=== PATIENT | male | born 1945 | race Caucasian/White ===

== ENCOUNTER 2017-01-20 17:20 | Outpatient (CLI) | payer MEDICARE | END 2017-01-20 17:21 | disposition home or self-care (01) | LOC: BICRAD 17:20 | PROVIDERS: ATTEND Family Medicine | DX: M70.62 Trochanteric bursitis, left hip (principal); M16.12 Unilateral primary osteoarthritis, left hip ==

== ENCOUNTER 2017-01-24 08:36 | Outpatient (CLI) | payer MEDICARE | END 2017-01-24 08:37 | disposition home or self-care (01) | LOC: BICMRI 08:36 | PROVIDERS: ATTEND Specialist | DX: M54.16 Radiculopathy, lumbar region (principal); N28.1 Cyst of kidney, acquired | CPT/HCPCS: 72148 ==

== ENCOUNTER 2018-09-22 06:39 | Outpatient (CLI) | payer MEDICARE ==
--- NOTE | 2018-09-22 07:47 | ULT ---
ULTRASOUND ABDOMEN: HISTORY: Abdominal pain FINDINGS: The liver, gallbladder, pancreas, left kidney and visualized portions of the spleen, aorta and IVC ap pear normal. The common duct measures 3 mm in diameter. No free fluid is seen. There is a 3.5 cm cyst arising from the superior pole of the right kidney. IMPRESSION: Right renal cyst.
== END 2018-09-22 06:40 | disposition home or self-care (01) ==
LOC: BICULT 06:39
PROVIDERS: ATTEND Internal Medicine Gastroenterology
DX: Z12.11 Encounter for screening for malignant neoplasm of colon (principal); R10.9 Unspecified abdominal pain; R63.4 Abnormal weight loss; N28.1 Cyst of kidney, acquired
CPT/HCPCS: 76700

== ENCOUNTER 2019-06-28 06:17 | Outpatient (CLI) | payer MEDICARE, OTHER ==
[2019-06-28 13:10] LABS: #Eosinphils 0.1 thou/uL (0.0-0.7); #Lymphocytes 2.1 thou/uL (1.20-3.40); #Monocytes 0.5 thou/uL (0.11-0.59); #Neutrophils 2.7 thou/uL (1.40-6.50); %Basophils 0.2 % (0.0-1.0); %Eosinophils 2.3 % (0.0-10.0); %Lymphocytes 38.6 % (21.0-51.0); Hemoglobin 14.3 g/dL (14.0-18.0); Mean Corpuscular HGB CONC 31.7 g/dL (32.0-36.0); Mean Corpuscular Hemoglobin 29.3 pg (27.0-31.0); Mean Corpuscular Volume 92.6 fL (78.0-98.0); Mean Platelet Volume 8.1 fL (7.4-10.4); Platelet Count 227 thou/uL (130-400); RBC Distribution Width 14.2 % (11.5-14.5); Red Blood Cell (RBC) Count 4.86 mill/uL (4.70-6.10); White Blood Cell (WBC) Count 5.4 thou/uL (4.8-10.8)
[2019-06-28 13:33] LABS: Anion Gap 12 mmol/L (10-20); BUN (Urea Nitrogen) 19 mg/dL (8.4-25.7); Calc. Creatinine Clearance 0 mL/min (70-130); Carbon Dioxide 22 mmol/L (23-31); Chloride 106 mmol/L (98-107); Estimated GFR-MDRD Greater than 90; Glucose 80 mg/dL (83-110); Potassium 4.1 mmol/L (3.5-5.1); Sodium 136 mmol/L (136-145)
--- NOTE | 2019-06-28 16:13 | EKG ---
Test Reason : Blood Pressure : / mmHG Vent. Rate : 075 BPM Atrial Rate : 075 BPM P-R Int : 186 ms QRS Dur : 122 ms QT Int : 410 ms P-R-T Axes : 063 020 073 degrees QTc Int : 457 ms Normal sinus rhythm Left bundle branch block Abnormal ECG When compared with ECG of 22-NOV-2013 16:40, Left bundle branch block is now Present Borderline criteria for Anterior infarct are no longer Present Confirmed by TAHIRA ORTIZ, DR. Womack ([id number]) on 06/28/2019 4:13:18 PM Referred By: CHANDRAKANT Confirmed By:DR. Vu HOFFMANN MD
[2019-06-30 17:16] LABS: SARS-CoV-2 MS2 Positive; SARS-CoV-2 N Gene Negative; SARS-CoV-2 S Gene Negative; SARS-CoV-2 orf1ab Negative
== END 2019-06-28 06:18 | disposition home or self-care (01) ==
LOC: LABBT 06:17
PROVIDERS: ATTEND Orthopaedic Surgery
DX: Z01.818 Encounter for other preprocedural examination (principal); M75.102 Unspecified rotator cuff tear or rupture of left shoulder, not specified as traumatic
CPT/HCPCS: 80048; 85025; 87635; 93005; 93010; U0003

== ENCOUNTER 2019-07-01 09:52 | Day surgery (SDC) | payer MEDICARE ==
[2019-06-28 11:03] VITALS: BMI 22.4
[2019-07-01] MEDS ORDERED: Fentanyl 100 MCG/2 ML VIAL ONE ×3 (12:21→14:55)
[2019-07-01] MEDS ORDERED: EPHEDRINE 25 MG/5 ML SYRINGE ONE (12:22)
[2019-07-01] MEDS ORDERED: PROPOFOL 200 MG/20 ML VIAL ONE (12:22)
[2019-07-01] MEDS ORDERED: Glycopyrrolate 0.2 MG/ML 5 ML SYRINGE ONE (12:22)
[2019-07-01] MEDS ORDERED: Dexamethasone 20 MG/5 ML VIAL ONE (12:22)
[2019-07-01] MEDS ORDERED: Ondansetron PF 4 MG/2 ML Vial ONE (12:22)
[2019-07-01] MEDS ORDERED: Rocuronium Bromide 10 MG/ML (10ML VIAL) ONE (12:22)
[2019-07-01] MEDS ORDERED: Ropivacaine 0.5% HCl/PF (150 MG/30 ML VIAL) ONE (12:23)
[2019-07-01] MEDS ORDERED: Ropivacaine 0.2% HCl/PF (40 MG/20 ML VIAL) ONE (12:23)
[2019-07-01] MEDS ORDERED: traMADol HCl 50 MG TAB PO PRN ×2 (14:50)
[2019-07-01] MEDS ORDERED: HYDROcodone/Acetaminophen 10/325 mg Tablet PO PRN ×2 (14:50)
[2019-07-01] MEDS ORDERED: Promethazine HCl 25 MG/ML VIAL IM PRN (14:50)
[2019-07-01] MEDS ORDERED: Ropivacaine 0.2% 550 ML 550 ML NERVE BLCK SCH (14:50)
[2019-07-01] MEDS ORDERED: Zolpidem Tartrate 5 MG TAB PO PRN (14:50)
[2019-07-01] MEDS ORDERED: Acetaminophen 325 MG TAB PO PRN (14:50)
[2019-07-01] MEDS ORDERED: Ondansetron PF 4 MG/2 ML Vial IVP PRN (14:50)
[2019-07-01] MEDS ORDERED: Fentanyl 100 MCG/2 ML VIAL IV PRN (14:51)
--- NOTE | 2019-07-01 21:55 | OP ---
DATE OF PROCEDURE: 07/01/2019 PREOPERATIVE DIAGNOSIS: Left shoulder biceps instability with subscapularis articular side rotator cuff tear. POSTOPERATIVE DIAGNOSIS: Left shoulder biceps instability with subscapularis articular side rotator cuff tear. PROCEDURE PERFORMED: Open primary repair of left shoulder subscapularis rotator cuff tendon and proximal biceps tenodesis. MANAGEMENT TRAINEE PROGRAM STORES: Ayad Funes PA-C ANESTHESIA: General via endotracheal tube augmented with interscalene block. COMPONENTS USED: One Arthrex biceps tenodesis screw and Ethibond transosseous sutures #5. ESTIMATED BLOOD LOSS: Less than 20. FINDINGS: Subscapularis articular side tear with biceps sling, disruption and dislocation of proximal biceps tendon of the humeral head in the groove. DRAINS: None. SPECIMENS: None. COMPLICATIONS: None. COUNTS: Correct. INDICATION FOR SURGERY: River is a 73-year-old white male, who has had progressive left shoulder pain implied with lifting and working overhead. He has had inability to sleep, discomfort has drawn him to obtain MRI, which demonstrated a biceps dislocation and subscapularis articular side tear. He has elected to proceed with open primary repair as definitive treatment of this problem. PROCEDURE IN DETAIL: After informed consent was obtained, the patient was taken to the operative suite, positioned appropriately on the operating table. General anesthesia was induced and an endotracheal tube was placed and secured. He received preoperative antibiotics. The left upper extremity was then prepped and draped in usual sterile fashion. Prior to incision, a time-out was called and all members of the surgical team agreed upon site, surgeon, and patient. After this completed, we used a standard deltopectoral approach. In the skin, incision was made just inferior to the coracoid process by palpation, carried down about three fingerbreadths. Skin dissection was carried down to the subcutaneous layer. The cephalic vein was identified and moved medially. The blunt dissection carried down to the conjoined tendon, which was retracted and held in place with the retractor. We then identified the biceps tendon along the humeral head running in the notch. This was opened with Bovie electrocautery and found to be quite tattered and hyperemic. It was also dislocated medially. The groove was then further opened inferiorly. We then used the Arthrex biceps 7 mm absorbable tenodesis screw to capture and use of interference fixation of the proximal biceps after appropriate preparation. We then turned our attention to subscapularis repair. Subscapularis was sharply taken down, carried along the superior margin and reflected anteriorly until chondral cartilage was identified. Serous fluid was then identified as we opened the anterior aspect. Curettage was used to prepare the bed and we placed two transosseous #5 Ethibond stitches and tied over the top in a watertight fashion. We felt this was adequate fixation and anatomical in nature and we were able to internally and externally rotate the tendon without any problem. The wound was copiously irrigated with normal saline. Primary closure was accomplished with #1 interrupted simple stitches in the musculature. Subcutaneous layer was closed with a small interrupted 0 Vicryl. Subcutaneous layer was closed with 2-0 interrupted inverted mattress and stainless steel cole were used to reapproximate the skin. Sterile dressing was applied. The procedure was terminated without any complication. The patient was awakened in the operative suite, extubated, and taken to recovery room in stable condition. A sling was placed and he will remain nonweightbearing and nonuse of that extremity for the next 4 to 6 weeks. Job ID: [id number]
== END 2019-07-01 18:00 | disposition home or self-care (01) ==
LOC: SDC 09:52
PROVIDERS: ATTEND Orthopaedic Surgery
PROC: 0LQ20ZZ Repair Left Shoulder Tendon, Open Approach (ICD-10-PCS; principal; 2019-07-01)
PROC: 0LS40ZZ Reposition Left Upper Arm Tendon, Open Approach (ICD-10-PCS; 2019-07-01)
PROC: 3E0T3BZ Introduction of Anesthetic Agent into Peripheral Nerves and Plexi, Percutaneous Approach (ICD-10-PCS; 2019-07-01)
DX: M75.112 Incomplete rotator cuff tear or rupture of left shoulder, not specified as traumatic (principal); M25.312 Other instability, left shoulder; E78.5 Hyperlipidemia, unspecified; Z79.899 Other long term (current) drug therapy; Z88.2 Allergy status to sulfonamides; Z88.8 Allergy status to other drugs, medicaments and biological substances
CPT/HCPCS: 23412; 23430; 64416; 97139; A4306; C1713; J0690; J1100; J2405; J2704; J2795; J3010

== ENCOUNTER 2020-04-26 14:49 | Outpatient (CLI) | payer MEDICARE | END 2020-04-26 14:50 | disposition home or self-care (01) | LOC: BICRAD 14:49 | PROVIDERS: ATTEND Specialist | DX: Z77.090 Contact with and (suspected) exposure to asbestos (principal); R91.8 Other nonspecific abnormal finding of lung field; J94.8 Other specified pleural conditions | CPT/HCPCS: 71046 ==

== ENCOUNTER 2020-07-14 09:53 | Outpatient (CLI) | payer MEDICARE ==
[2020-07-14] MEDS ORDERED: Magnevist 469MG/ML 20 ML VIAL ONE (10:12)
[2020-07-14 10:39] LABS: Estimated GFR-MDRD - POC Greater than 90
== END 2020-07-14 09:54 | disposition home or self-care (01) ==
LOC: BICMRI 09:53
PROVIDERS: ATTEND Otolaryngology Plastic Surgery within the Head & Neck
DX: H83.02 Labyrinthitis, left ear (principal); I67.82 Cerebral ischemia; J32.2 Chronic ethmoidal sinusitis
CPT/HCPCS: 70553; 82565

== ENCOUNTER 2020-12-29 09:45 | Outpatient (CLI) | payer MEDICARE | END 2020-12-29 09:46 | disposition home or self-care (01) | LOC: CT 09:45 | PROVIDERS: ATTEND Specialist | DX: N20.0 Calculus of kidney (principal); R91.8 Other nonspecific abnormal finding of lung field | CPT/HCPCS: 74176 ==

== ENCOUNTER 2021-01-16 09:02 | Outpatient (CLI) | payer MEDICARE ==
[2021-01-16] MEDS ORDERED: Iopamidol 370 76% 100 ML VIAL ONE (10:11)
== END 2021-01-16 09:03 | disposition home or self-care (01) ==
LOC: CT 09:02
PROVIDERS: ATTEND Specialist
DX: Z77.090 Contact with and (suspected) exposure to asbestos (principal)
CPT/HCPCS: 71260; 82565; Q9967

== ENCOUNTER 2021-05-24 08:19 | Outpatient (CLI) | payer OTHER ==
[2021-05-24 08:55] LABS: Estimated GFR-MDRD - POC Greater than 90
== END 2021-05-24 08:20 | disposition home or self-care (01) ==
LOC: BICCT 08:19
PROVIDERS: ATTEND Specialist
DX: J64 Unspecified pneumoconiosis (principal)
CPT/HCPCS: 71260; 82565

== ENCOUNTER 2021-06-22 11:17 | Outpatient (CLI) | payer OTHER | END 2021-06-22 11:18 | disposition home or self-care (01) | LOC: CT 11:17 | PROVIDERS: ATTEND Otolaryngology Plastic Surgery within the Head & Neck | DX: H90.3 Sensorineural hearing loss, bilateral (principal) | CPT/HCPCS: 70480 ==

== ENCOUNTER 2021-07-09 08:26 | Outpatient (CLI) | payer OTHER | END 2021-07-09 08:27 | disposition home or self-care (01) | LOC: RAD 08:26 | PROVIDERS: ATTEND Internal Medicine Critical Care Medicine | DX: R06.00 Dyspnea, unspecified (principal) | CPT/HCPCS: 71046 ==

== ENCOUNTER 2021-08-24 13:22 | Outpatient (CLI) | payer OTHER | END 2021-08-24 13:23 | disposition home or self-care (01) | LOC: BICCT 13:22 | PROVIDERS: ATTEND Urology | DX: N20.0 Calculus of kidney (principal); N28.1 Cyst of kidney, acquired | CPT/HCPCS: 74176 ==

== ENCOUNTER 2022-02-05 13:51 | Outpatient (CLI) | payer OTHER | END 2022-02-05 13:52 | disposition home or self-care (01) | LOC: BICRAD 13:51 | PROVIDERS: ATTEND Nurse Practitioner Family | DX: M47.896 Other spondylosis, lumbar region (principal) | CPT/HCPCS: 72120 ==

== ENCOUNTER 2022-04-26 10:08 | Outpatient (CLI) | payer OTHER | END 2022-04-26 10:09 | disposition home or self-care (01) | LOC: RAD 10:08 | PROVIDERS: ATTEND Internal Medicine Critical Care Medicine | DX: R06.00 Dyspnea, unspecified (principal); J98.4 Other disorders of lung | CPT/HCPCS: 71046 ==

== ENCOUNTER 2022-04-30 04:09 | Emergency (ER) | payer OTHER ==
[2022-04-30] MEDS ORDERED: Ondansetron ODT 4 MG TAB ONE (04:43)
[2022-04-30 05:24] LABS: #Basophils 0.1 thou/uL (0.0-0.2); #Eosinphils 0.3 thou/uL (0.0-0.7); #Lymphocytes 1.8 thou/uL (1.20-3.40); #Monocytes 0.9 thou/uL (0.11-0.59); #Neutrophils 3.7 thou/uL (1.40-6.50); %Basophils 0.8 % (0.0-1.0); %Eosinophils 4.5 % (0.0-10.0); %Lymphocytes 26.5 % (21.0-51.0); %Monocytes 13.4 % (0.0-10.0); %Neutrophils 54.8 % (42.0-75.0); Hemoglobin 14.2 g/dL (14.0-18.0); Mean Corpuscular HGB CONC 33.9 g/dL (32.0-36.0); Mean Corpuscular Hemoglobin 31.6 pg (27.0-31.0); Mean Corpuscular Volume 93.3 fl (78.0-98.0); Mean Platelet Volume 6.7 fL (7.4-10.4); Platelet Count 330 10x3/uL (130-400); RBC Distribution Width 14.7 % (11.5-14.5); Red Blood Cell (RBC) Count 4.49 mill/uL (4.70-6.10); White Blood Cell (WBC) Count 6.8 10x3/uL (4.8-10.8)
[2022-04-30 05:44] LABS: ALT (SGPT) 16 U/L (8-55); AST (SGOT) 18 U/L (5-34); Albumin 3.8 g/dL (3.4-4.8); Alkaline Phosphatase 51 U/L (40-110); Anion Gap 14 mmol/L (10-20); BUN (Urea Nitrogen) 22 mg/dL (8.4-25.7); Bilirubin, Total 0.9 mg/dL (0.2-1.2); Calc. Creatinine Clearance 0 mL/min (70-130); Calcium 9.8 mg/dL (7.8-10.44); Carbon Dioxide 22 mmol/L (23-31); Chloride 105 mmol/L (98-107); Estimated GFR 80; Globulin 3.1 g/dL (2.4-3.5); Glucose 115 mg/dL (83-110); Lipase 20 U/L (8-78); Potassium 4.3 mmol/L (3.5-5.1); Protein, Total 6.9 g/dL (5.8-8.1); Sodium 137 mmol/L (136-145)
[2022-04-30] MEDS ORDERED: Morphine 4 MG/ML VIAL ONE (06:23)
[2022-04-30 08:39] LABS: Bilirubin Negative (Negative); Blood, Urine Negative (Negative); Clarity Clear (Clear); Glucose, Urine (Dipstick) Normal (Negative); Ketone, Urine Negative (Negative); Leukocyte Negative Leu/uL (Negative); Nitrite Negative (Negative); Protein, Urine (Dipstick) Negative (Neg-Trace); Specific Gravity, Urine 1.041 (1.002-1.036); Urobilinogen Normal mg/dL (Less than 2); pH, Urine 5.5 (5.0-9.0)
[2022-04-30] MEDS ORDERED: Iopamidol-370 76% 500 ML 1 ML ONE (11:29)
== END 2022-04-30 09:13 | disposition home or self-care (01) ==
LOC: ERS 04:09
DX: R10.30 Lower abdominal pain, unspecified (principal); R10.816 Epigastric abdominal tenderness; R11.2 Nausea with vomiting, unspecified; I10 Essential (primary) hypertension; K21.9 Gastro-esophageal reflux disease without esophagitis; E78.5 Hyperlipidemia, unspecified; Z79.899 Other long term (current) drug therapy
CPT/HCPCS: 36415; 74177; 80053; 81003; 83605; 83690; 85025; 96361; 96374; J2270; Q0162; Q9967

== ENCOUNTER 2022-05-28 11:17 | Outpatient (CLI) | payer OTHER | END 2022-05-28 11:18 | disposition home or self-care (01) | LOC: MRI 11:17 | PROVIDERS: ATTEND Nurse Practitioner Family | DX: M47.816 Spondylosis without myelopathy or radiculopathy, lumbar region (principal); M51.36 Other intervertebral disc degeneration, lumbar region; M51.37 Other intervertebral disc degeneration, lumbosacral region | CPT/HCPCS: 72148 ==

== ENCOUNTER 2022-12-17 15:53 | Outpatient (CLI) | payer OTHER | END 2022-12-17 15:54 | disposition home or self-care (01) | LOC: CT 15:53 | PROVIDERS: ATTEND Otolaryngology Plastic Surgery within the Head & Neck | DX: H90.A22 Sensorineural hearing loss, unilateral, left ear, with restricted hearing on the contralateral side (principal); H74.8X2 Other specified disorders of left middle ear and mastoid; Z98.890 Other specified postprocedural states | CPT/HCPCS: 70480 ==

== ENCOUNTER 2023-11-17 09:25 | Outpatient (CLI) | payer OTHER | END 2023-11-17 09:26 | disposition home or self-care (01) | LOC: BICRAD 09:25 | PROVIDERS: ATTEND Specialist | DX: M54.50 Low back pain, unspecified (principal); M47.816 Spondylosis without myelopathy or radiculopathy, lumbar region | CPT/HCPCS: 72100 ==

== ENCOUNTER 2023-12-11 13:32 | Observation (INO) | payer OTHER ==
[2023-12-11 16:13] LABS: #Basophils Less than 0.03 10x3/uL (0.0-0.2); #Eosinophils Less than 0.03 10x3/uL (0.0-0.7); %Basophils 0.2 % (0.0-1.0); %Eosinophils 0.1 % (0.0-10.0); %Lymphocytes 16.1 % (21.0-51.0); %Monocytes 6.4 % (0.0-10.0); %Neutrophils 76.7 % (42.0-75.0); Hematocrit 43.3 % (42.0-52.0); Hemoglobin 13.8 g/dL (14.0-18.0); Mean Corpuscular HGB CONC 31.9 g/dL (32.0-36.0); Mean Corpuscular Hemoglobin 30.9 pg (27.0-31.0); Mean Corpuscular Volume 96.9 fL (78.0-98.0); Mean Platelet Volume 9.4 fL (7.4-10.4); Platelet Count 408 10x3/uL (130-400); RBC Distribution Width 13.5 % (11.5-14.5); Red Blood Cell (RBC) Count 4.47 mill/uL (4.70-6.10)
[2023-12-11] MEDS ORDERED: fentaNYL 50 mcg/mL 1 mL Vial ONE (16:24)
[2023-12-11] MEDS ORDERED: Midazolam HCl 2 mg/2 ml Vial ONE (16:24)
[2023-12-11 16:26] LABS: ALT (SGPT) 12 U/L (8-55); AST (SGOT) 16 U/L (5-34); Albumin 3.8 g/dL (3.4-4.8); Alkaline Phosphatase 64 U/L (40-110); Anion Gap 13 mmol/L (10-20); BUN (Urea Nitrogen) 19 mg/dL (8.4-25.7); Bilirubin, Total 0.9 mg/dL (0.2-1.2); Calc. Creatinine Clearance 0 mL/min (70-130); Calcium 9.3 mg/dL (7.8-10.44); Carbon Dioxide 23 mmol/L (23-31); Chloride 106 mmol/L (98-107); Estimated GFR 88; Globulin 3.2 g/dL (2.4-3.5); Glucose 103 mg/dL (83-110); Sodium 137 mmol/L (136-145)
[2023-12-11 16:32] LABS: Troponin I 0.026 ng/mL (< 0.028)
[2023-12-11] MEDS ORDERED: traMADol HCl 50 MG TAB PO PRN (17:25)
[2023-12-11] MEDS ORDERED: Acetaminophen 325 MG TAB PO PRN (17:25)
[2023-12-11] MEDS ORDERED: Ondansetron PF 4 MG/2 ML Vial IVP PRN (17:25)
[2023-12-11] MEDS ORDERED: Ondansetron ODT 4 MG TAB PO PRN (17:25)
[2023-12-11] MEDS ORDERED: Pantoprazole DR 40 MG TAB PO PRN (18:46)
[2023-12-11] MEDS ORDERED: Albuterol 2.5 MG (3 mL) NEB NEB PRN (18:52)
[2023-12-11] MEDS ORDERED: Morphine 2 MG/ML VIAL ONE (19:00)
[2023-12-11 20:07] VITALS: BMI 18.8
[2023-12-11] MEDS ORDERED: hydrALAZINE 20 MG/ML VIAL SLOW IVP PRN ×2 (20:31→21:30)
[2023-12-11] MEDS: Pramipexole Di-HCl 1 MG TAB PO SCH (20:36)
[2023-12-11] MEDS: Tamsulosin HCl 0.4 MG CAP PO SCH (20:36)
[2023-12-11] MEDS: HYDROcodone/Acetaminophen 5/325 mg Tablet PO PRN (20:37)
[2023-12-11] MEDS ORDERED: Famotidine/PF 20 mg/2ml Vial SLOW IVP SCH (21:00)
[2023-12-11] MEDS ORDERED: Famotidine 20 MG TAB PO SCH (21:00)
[2023-12-11] MEDS ORDERED: Promethazine 25 MG TAB PO PRN (21:51)
[2023-12-11] MEDS: Timolol 0.5% Ophth Soln 5 ml Bottle EA EYE SCH (22:14)
[2023-12-11] MEDS: Megestrol Acetate 800 MG/20 ML UDCUP PO SCH (22:14)
[2023-12-12 06:26] LABS: #Basophils Less than 0.03 10x3/uL (0.0-0.2); #Eosinophils Less than 0.03 10x3/uL (0.0-0.7); %Basophils 0.2 % (0.0-1.0); %Eosinophils 0.2 % (0.0-10.0); %Lymphocytes 22.1 % (21.0-51.0); %Monocytes 7.5 % (0.0-10.0); %Neutrophils 69.4 % (42.0-75.0); Hematocrit 45.7 % (42.0-52.0); Hemoglobin 14.7 g/dL (14.0-18.0); Mean Corpuscular HGB CONC 32.2 g/dL (32.0-36.0); Mean Corpuscular Hemoglobin 30.5 pg (27.0-31.0); Mean Corpuscular Volume 94.8 fL (78.0-98.0); Mean Platelet Volume 9.2 fL (7.4-10.4); Platelet Count 447 10x3/uL (130-400); RBC Distribution Width 13.6 % (11.5-14.5); Red Blood Cell (RBC) Count 4.82 mill/uL (4.70-6.10)
[2023-12-12 06:41] LABS: ALT (SGPT) 13 U/L (8-55); AST (SGOT) 14 U/L (5-34); Albumin 3.9 g/dL (3.4-4.8); Alkaline Phosphatase 73 U/L (40-110); Anion Gap 16 mmol/L (10-20); BUN (Urea Nitrogen) 19 mg/dL (8.4-25.7); Calc. Creatinine Clearance 56 mL/min (70-130); Calcium 9.4 mg/dL (7.8-10.44); Carbon Dioxide 22 mmol/L (23-31); Chloride 102 mmol/L (98-107); Estimated GFR 88; Globulin 3.4 g/dL (2.4-3.5); Glucose 121 mg/dL (83-110); Potassium 4.3 mmol/L (3.5-5.1); Protein, Total 7.3 g/dL (5.8-8.1); Sodium 136 mmol/L (136-145)
[2023-12-12] MEDS: Dicyclomine 20 MG TAB PO SCH (08:28)
[2023-12-12] MEDS: Folic Acid 1 MG TAB PO SCH (08:28)
[2023-12-12] MEDS: Furosemide 20 MG TAB PO SCH (08:28)
[2023-12-12] MEDS: Amlodipine 5 MG TAB PO SCH (08:28)
[2023-12-12] MEDS: chlordiazePOXIDE HCl 5 MG CAP PO SCH (10:14)
[2023-12-12 11:25] VITALS: BMI 18.8
[2023-12-12 16:06] VITALS: BP 124/71; TEMP 98.6
[2023-12-13] MEDS ORDERED: Methotrexate Sodium/PF 50 MG (2 mL) VIAL IM SCH (09:00)
== END 2023-12-12 17:35 | disposition home or self-care (01) ==
LOC: ERS 13:32 → SURG A 17:25
PROVIDERS: ADMIT Internal Medicine; ATTEND Internal Medicine
DX: J96.01 Acute respiratory failure with hypoxia (principal); J93.9 Pneumothorax, unspecified; J61 Pneumoconiosis due to asbestos and other mineral fibers; I11.0 Hypertensive heart disease with heart failure; I50.30 Unspecified diastolic (congestive) heart failure; N40.0 Benign prostatic hyperplasia without lower urinary tract symptoms; K21.9 Gastro-esophageal reflux disease without esophagitis; Z79.51 Long term (current) use of inhaled steroids; Z88.2 Allergy status to sulfonamides; Z88.8 Allergy status to other drugs, medicaments and biological substances
CPT/HCPCS: 71045 ×2; 80053 ×2; 84145; 84484; 85025 ×2; 93005; 96374; 96375; 99285; G0378 ×3; J2250; J2272; J3010; 36415

== ENCOUNTER 2024-11-30 09:02 | Outpatient (CLI) | payer OTHER ==
[2024-11-30 09:32] LABS: Estimated GFR - POC 67.0
[2024-11-30] MEDS ORDERED: Iopamidol 370 76% 100 ML VIAL ONE (10:11)
== END 2024-11-30 09:03 | disposition home or self-care (01) ==
LOC: CT 09:02
PROVIDERS: ATTEND Specialist
DX: J61 Pneumoconiosis due to asbestos and other mineral fibers (principal)
CPT/HCPCS: 36415; 71260; 82565; Q9967